=== PATIENT | female | born 1950 | race Caucasian/White ===

== ENCOUNTER 2018-08-30 10:56 | Emergency (ER) | payer OTHER ==
[~2018-08-30] VITALS: Ht 157.5 cm; Wt 77.6 kg
[~2018-08-30 10:56] MED LIST: AMOX TR-K CLV1 EAC4 PO; FLOVENT HFA12 GM; SYNTHROID112 MC1 PO
[2018-08-30] MEDS ORDERED: NORCO 5-325 TA1 EACH PO (14:37)
[2018-08-30 15:14] VITALS: BP 152/69
== END 2018-08-30 15:16 | disposition home or self-care (01) ==
LOC: ER 10:56
DX: S52.502A Unspecified fracture of the lower end of left radius, initial encounter for closed fracture (principal); S01.01XA Laceration without foreign body of scalp, initial encounter; J45.909 Unspecified asthma, uncomplicated; W01.0XXA Fall on same level from slipping, tripping and stumbling without subsequent striking against object, initial encounter; Y93.A1 Activity, exercise machines primarily for cardiorespiratory conditioning; Y92.89 Other specified places as the place of occurrence of the external cause; Y99.8 Other external cause status

== ENCOUNTER 2019-07-10 15:46 | Emergency (ER) | payer OTHER ==
[~2019-07-10] VITALS: Ht 157.5 cm; Wt 78.0 kg
[~2019-07-10 15:46] MED LIST changes: +NORCO 5-325 TA1 EACH PO
[2019-07-10 15:51] VITALS: BP 170/65
[2019-07-10] MEDS ORDERED: PREDNISONE 10 M10 MG PO (16:36)
[2019-07-10] MEDS ORDERED: ZANAFLEX4 MG PO (16:36)
== END 2019-07-10 16:45 | disposition home or self-care (01) ==
LOC: ER 15:46
DX: S33.6XXA Sprain of sacroiliac joint, initial encounter (principal); J45.909 Unspecified asthma, uncomplicated; X58.XXXA Exposure to other specified factors, initial encounter; Y93.89 Activity, other specified; Y92.89 Other specified places as the place of occurrence of the external cause; Y99.8 Other external cause status

== ENCOUNTER 2019-07-20 04:26 | Emergency (ER) | payer OTHER ==
[~2019-07-20] VITALS: Ht 157.5 cm; Wt 78.0 kg
[~2019-07-20 04:26] MED LIST changes: +PREDNISONE 10 M10 MG PO; +ZANAFLEX4 MG PO
[2019-07-20] MEDS ORDERED: SYNTHROID125 MC1 PO (04:43)
[2019-07-20 05:19] VITALS: BP 192/75
== END 2019-07-20 05:27 | disposition home or self-care (01) ==
LOC: ER 04:26
DX: M54.5 Low back pain (principal); J45.909 Unspecified asthma, uncomplicated

== ENCOUNTER 2020-12-25 09:17 | Emergency (ER) | payer OTHER ==
[~2020-12-25] VITALS: Ht 157.5 cm; Wt 81.7 kg
[~2020-12-25 09:17] MED LIST changes: +SYNTHROID125 MC1 PO
[2020-12-25 09:48] LABS: ABSOLUTE NEUTROPHILS 3.1 thou/uL (1.4-8.2); BASOPHILS 0.8 % (0.0-2.0); EOSINOPHILS 1.5 % (0.0-3.0); HEMATOCRIT 41.4 % (37.0-47.0); HEMOGLOBIN 13.6 gm/dL (12.0-15.0); LYMPHOCYTES 33.7 % (24.0-44.0); MCH 29.2 pg (26.0-34.0); MCHC 32.8 g/dL (28.0-37.0); MCV 89.1 fL (80.0-100.0); MONOCYTES 12.8 % (1.0-8.0); PLATELET COUNT 198 thou/uL (150-400); POLYS 51.2 % (36.0-66.0); RBC 4.64 mil/uL (4.20-5.00); RDW 13.5 % (10.5-14.5)
[2020-12-25 09:52] LABS: ANION GAP 7 mmol/L (7-16); BUN 14 mg/dL (7-18); CALCIUM 8.5 mg/dL (8.5-10.1); CHLORIDE 103 mmol/L (98-107); CO2 29 mmol/L (21-32); CREATININE 0.9 mg/dL (0.6-1.0); GLUCOSE 91 mg/dL (74-106); POTASSIUM 3.9 mmol/L (3.5-5.1); SODIUM 139 mmol/L (136-145)
[2020-12-25 10:02] LABS: ALBUMIN 3.4 g/dL (3.4-5.0); SGOT 26 U/L (15-37); SGPT 39 U/L (14-59); TOTAL BILIRUBIN 0.4 mg/dL (0.2-1.0); TOTAL PROTEIN 6.6 g/dL (6.4-8.2); TROPONIN-I <0.06 ng/mL (<0.06)
[2020-12-25 10:40] LABS: URINE BILIRUBIN NEGATIVE (Negative); URINE BLOOD NEGATIVE (Negative); URINE CLARITY CLEAR; URINE COLOR YELLOW; URINE GLUCOSE-RANDOM* NEGATIVE (Negative); URINE KETONES NEGATIVE (Negative); URINE LEUKOCYTES-REFLEX NEGATIVE (Negative); URINE NITRITE-REFLEX NEGATIVE (Negative); URINE PROTEIN (DIPSTICK) NEGATIVE (Negative); URINE SPECIFIC GRAVITY <= 1.005 (1.005-1.035); URINE UROBILINOGEN 0.2 E.U./dl (0.2-1.0)
[2020-12-25] MEDS ORDERED: ATORVASTATIN CA10 MG PO (10:41)
[2020-12-25] MEDS ORDERED: LEVOTHYROXINE112 MCG PO (10:41)
[2020-12-25 13:05] VITALS: BP 140/66
--- NOTE | 2020-12-25 13:07 | EKG ---
[address] [address] ELECTROCARDIOGRAM REPORT Name: GEECHARLES FERNANDEZ Room #: DEP Sally#: [id number] Admission: 12/25/20 Attend Phys: Discharge: 12/25/20 Date of : 46 Report #: [id number] [facility] Test Date: 2020-12-25 Test Time: 09:20:11 Pat Name: CHARLES FLYNN Department: Room: Gender: F [employer]: : [id number] Requested By: Alecia Puri Order Number: [id number] MD: Jose Alberto Renee Measurements Intervals [place] Rate: 51 P: 60 OR: 169 QRS: -2 QRSD: 102 T: 37 QT: 497 QTc: 458 Interpretive Statements Sinus rhythm No previous ECG available for comparison Electronically Signed On 12-25-2020 13:07:14 CDT by Jose Alberto Reene [email or web address] <ELECTRONICALLY SIGNED> By: Jose Alberto Renee MD, [facility] 12/25/20 1307 0920 9 Jose Alberto Renee MD, FACC /EPI
== END 2020-12-25 13:05 | disposition home or self-care (01) ==
LOC: ER 09:17
PROVIDERS: Emergency Medicine
DX: R42 Dizziness and giddiness (principal); J45.909 Unspecified asthma, uncomplicated; E03.9 Hypothyroidism, unspecified; Z79.899 Other long term (current) drug therapy